=== PATIENT | female | born 1980 | race African-American/Black ===

== ENCOUNTER 2016-08-02 01:54 | Emergency (ER) | payer BC ==
[~2016-08-02] VITALS: Ht 170.2 cm; Wt 75.5 kg
[~2016-08-02 01:54] MED LIST: ALBUTEROL; BEN25 PO; CYCL-319 PO; DICL50TA11 PO; HC1C30 TOP; IMIT25 PO; MECL12.574 PO; ONDA4TAB8 PO; SUMATRIPTAN
[2016-08-02 01:57] VITALS: Ht 170.2 cm; Wt 75.5 kg
[2016-08-02] MEDS ORDERED: IBUPROFEN 200 MG TAB PO STA (02:16)
[2016-08-02] MEDS ORDERED: CYCL-319 PO (02:38)
[2016-08-02] MEDS ORDERED: IBUP400T22 PO (02:38)
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
--- NOTE | 2016-08-02 03:36 | RADRPT ---
PROCEDURE: XR Chest. CLINICAL INDICATION: Chest pain TECHNIQUE: Portable single view of the chest COMPARISON: 04/24/2014 FINDINGS: Top normal heart size. No definite acute infiltrate, pleural effusion, or significant edema. No [place] abnormality is seen. IMPRESSION: No definite acute disease. RPTAT: [facility] Courtney Peña, Physician Date Time Electronically viewed and signed by Courtney Peña, Physician on 08/02/2016 03:35 LE/
== END 2016-08-02 03:43 | disposition home or self-care (01) ==
LOC: FTE 01:54
DX: R07.89 Other chest pain (principal); J45.909 Unspecified asthma, uncomplicated; Z91.040 Latex allergy status
CPT/HCPCS: 71010; 93005